=== PATIENT | female | born 1975 | race Native Hawaiian/Other Pacific Islander ===

== ENCOUNTER 2016-09-22 13:27 | Outpatient (CLI) | payer OTHER ==
[2016-09-22] MEDS ORDERED: LYRICA25 MG OR (14:11)
[2016-09-22] MEDS ORDERED: PHEN50CH2 PO (14:11)
[2016-09-22] MEDS ORDERED: SERT50TA PO (14:12)
== END 2016-09-22 13:38 | disposition short-term general hospital (02) ==
LOC: AMB 13:27
DX: R41.82 Altered mental status, unspecified (principal); F19.129 Other psychoactive substance abuse with intoxication, unspecified
CPT/HCPCS: A0425; A0429

== ENCOUNTER 2016-09-22 13:38 | Inpatient (IN) | payer OTHER ==
[~2016-09-22] VITALS: Ht 175.3 cm; Wt 63.5 kg
[2016-09-22 13:40] VITALS: BP 114/77; TEMP 98.8
[2016-09-22] MEDS ORDERED: PHEN50CH2 PO (14:11)
[2016-09-22] MEDS ORDERED: LYRICA25 MG OR (14:11)
[2016-09-22] MEDS ORDERED: SERT50TA PO (14:12)
[2016-09-22 14:34] LABS: POTASSIUM 3.3 mmol/L (3.6-5.2); SODIUM 139 mmol/L (136-145)
[2016-09-22 14:48] LABS: PLATELET COUNT 266 K/uL (152-353)
[2016-09-22 17:00] VITALS: BP 138/88
[2016-09-23] VITALS (13 sets, daily range): BP systolic 99–130; BP diastolic 45–70; TEMP 98–99.4; Ht 175.3 cm; Wt 63.5 kg
[2016-09-23 03:18] LABS: POTASSIUM 3.5 mmol/L (3.6-5.2); SODIUM 137 mmol/L (136-145)
[2016-09-23 03:31] LABS: PLATELET COUNT 207 K/uL (152-353)
[2016-09-23 03:47] LABS: PARTIAL THROMBOPLASTIN TIME 27.8 SECONDS (24.5-33.6)
[2016-09-24] VITALS (24 sets, daily range): BP systolic 92–124; BP diastolic 41–76; TEMP 98–98.7
[2016-09-24 08:04] LABS: PLATELET COUNT 179 K/uL (152-353)
[2016-09-24 08:30] LABS: POTASSIUM 3.2 mmol/L (3.6-5.2); SODIUM 138 mmol/L (136-145)
[2016-09-25] VITALS (11 sets, daily range): BP systolic 85–121; BP diastolic 46–69; TEMP 97.7–98.3
[2016-09-25 08:09] LABS: PLATELET COUNT 190 K/uL (152-353)
[2016-09-25 08:30] LABS: SODIUM 140 mmol/L (136-145)
[2016-09-26 03:38] VITALS: BP 116/56; TEMP 98.2
[2016-09-26 07:26] LABS: POTASSIUM 3.8 mmol/L (3.6-5.2); SODIUM 137 mmol/L (136-145)
[2016-09-26 07:51] LABS: PLATELET COUNT 173 K/uL (152-353)
[2016-09-26 08:00] VITALS: BP 110/68; TEMP 98.3
[2016-09-26 10:00] VITALS: BP 108/63
[2016-09-26 12:00] VITALS: BP 106/70; TEMP 98
== END 2016-09-26 15:18 | disposition home or self-care (01) | DRG 897 ==
LOC: ED 13:38 → ICU 09-23 10:15
PROVIDERS: Specialist; ADMIT Emergency Medicine
DX: F15.23 Other stimulant dependence with withdrawal (principal); B16.9 Acute hepatitis B without delta-agent and without hepatic coma; N39.0 Urinary tract infection, site not specified; S22.089A Unspecified fracture of T11-T12 vertebra, initial encounter for closed fracture; F14.10 Cocaine abuse, uncomplicated; B96.20 Unspecified Escherichia coli [E. coli] as the cause of diseases classified elsewhere; F31.9 Bipolar disorder, unspecified; F43.10 Post-traumatic stress disorder, unspecified; M79.7 Fibromyalgia; K81.9 Cholecystitis, unspecified; X58.XXXA Exposure to other specified factors, initial encounter; Y92.9 Unspecified place or not applicable; R94.5 Abnormal results of liver function studies; R73.9 Hyperglycemia, unspecified; R81 Glycosuria
CPT/HCPCS: 36415; 80053; 80074; 80307; 80320; 81000; 81025; 82140; 82150; 82962; 83036; 83605; 83690; 83735; 84100; 85007; 85027; 85610; 85730; 87077; 87086; 87088; 87186; 93005; 96365; 96367; 96372; 96375; 99285; G0479; J0690; J1650; J1885; J1956; J2060; J3486; J3490; Q9963

== ENCOUNTER 2017-07-30 19:15 | Outpatient (CLI) | payer OTHER ==
[~2017-07-30 19:15] MED LIST: LYRICA25 MG OR; PHEN50CH2 PO; SERT50TA PO
== END 2017-07-30 19:23 | disposition short-term general hospital (02) ==
LOC: AMB 19:15
DX: F19.10 Other psychoactive substance abuse, uncomplicated (principal)
CPT/HCPCS: A0425; A0429

== ENCOUNTER 2017-07-30 19:39 | Emergency (ER) | payer OTHER ==
[~2017-07-30] VITALS: Ht 165.1 cm; Wt 49.9 kg
[2017-07-30 20:39] LABS: PLATELET COUNT 312 K/uL (152-353)
[2017-07-30 20:46] LABS: SODIUM 136 mmol/L (136-145)
[2017-08-01 02:35] VITALS: BP 125/71; TEMP 98.8
== END 2017-08-01 02:34 | disposition other institution (70) ==
LOC: ED 19:39
PROVIDERS: Emergency Medicine
DX: F19.10 Other psychoactive substance abuse, uncomplicated (principal)
CPT/HCPCS: 36415; 80053; 80307; 80320; 80329; 81000; 81025; 84132; 85027; 93005; 99285

== ENCOUNTER 2018-02-22 21:04 | Emergency (ER) | payer OTHER ==
[~2018-02-22] VITALS: Ht 175.3 cm; Wt 68.5 kg
[2018-02-22 21:53] LABS: PLATELET COUNT 209 K/uL (152-353)
[2018-02-22 22:36] VITALS: BP 107/54; TEMP 98.4
== END 2018-02-22 22:37 | disposition home or self-care (01) ==
LOC: ED 21:04
PROVIDERS: Internal Medicine
DX: J40 Bronchitis, not specified as acute or chronic (principal); M79.10 Myalgia, unspecified site
CPT/HCPCS: 85027; 94664; 96372; 99283; 99284; J1885

== ENCOUNTER 2018-07-26 17:43 | Emergency (ER) | payer OTHER ==
[~2018-07-26] VITALS: Ht 175.3 cm; Wt 68.5 kg
[2018-07-26 19:26] LABS: POTASSIUM 3.4 mmol/L (3.6-5.2)
[2018-07-26 19:27] LABS: PLATELET COUNT 251 K/uL (152-353)
[2018-07-27 20:15] VITALS: BP 10110/6; TEMP 98.2
== END 2018-07-27 20:15 | disposition home or self-care (01) ==
LOC: ED 17:43
PROVIDERS: Family Medicine
DX: R06.02 Shortness of breath (principal); N39.0 Urinary tract infection, site not specified; E87.6 Hypokalemia; F41.9 Anxiety disorder, unspecified; R00.0 Tachycardia, unspecified
CPT/HCPCS: 80053; 80307; 80320; 80329; 81000; 85027; 87077; 87086; 87088; 87185; 87186; 93005; 99285; J1200; J1630; J2060

== ENCOUNTER 2018-07-28 19:21 | Outpatient (CLI) | payer OTHER | END 2018-07-28 19:24 | disposition short-term general hospital (02) | LOC: AMB 19:21 | DX: R41.82 Altered mental status, unspecified (principal) | CPT/HCPCS: A0425; A0427 ==

== ENCOUNTER 2018-07-28 19:31 | Emergency (ER) | payer OTHER ==
[~2018-07-28] VITALS: Ht 175.3 cm; Wt 68.5 kg
[2018-07-28 20:10] LABS: PLATELET COUNT 293 K/uL (152-353)
[2018-07-28 20:14] LABS: POTASSIUM 3.4 mmol/L (3.6-5.2)
[2018-07-28 20:58] VITALS: BP 123/86; TEMP 98.3
== END 2018-07-28 21:04 | disposition home or self-care (01) ==
LOC: ED 19:31
PROVIDERS: Family Medicine
DX: R06.02 Shortness of breath (principal); N39.0 Urinary tract infection, site not specified; E87.6 Hypokalemia; F41.9 Anxiety disorder, unspecified
CPT/HCPCS: 80053; 80307; 85027; 96361; 96365; 99284; J0696

== ENCOUNTER 2019-04-11 11:50 | Emergency (ER) | payer OTHER ==
[~2019-04-11] VITALS: Ht 175.3 cm; Wt 69.3 kg
[2019-04-11 11:59] VITALS: BP 124/63; TEMP 98.1
[2019-04-11 12:50] LABS: PLATELET COUNT 294 K/uL (152-353)
[2019-04-11 12:55] LABS: POTASSIUM 3.9 mmol/L (3.6-5.2)
[2019-04-11] MEDS ORDERED: OLANZAPINE10 M2 PO (14:18)
[2019-04-11] MEDS ORDERED: PHEN50CH2 PO (14:19)
== END 2019-04-11 16:10 | disposition home or self-care (01) ==
LOC: ED 11:50
PROVIDERS: Emergency Medicine
DX: R44.0 Auditory hallucinations (principal); F20.9 Schizophrenia, unspecified; N39.0 Urinary tract infection, site not specified; F15.10 Other stimulant abuse, uncomplicated; Z91.14 Patient's other noncompliance with medication regimen
CPT/HCPCS: 80053; 80307; 80320; 80329; 81000; 85027; 87088; 93005; 99285

== ENCOUNTER 2020-04-27 22:52 | Emergency (ER) | payer OTHER ==
[~2020-04-27] VITALS: Ht 175.3 cm; Wt 68.0 kg
[~2020-04-27 22:52] MED LIST changes: +OLANZAPINE10 M2 PO
[2020-04-28 00:50] VITALS: BP 142/84; TEMP 98.5
== END 2020-04-28 00:50 | disposition home or self-care (01) ==
LOC: ED 22:52
DX: S00.83XA Contusion of other part of head, initial encounter (principal); R51.9 Headache, unspecified; Y04.2XXA Assault by strike against or bumped into by another person, initial encounter; Y92.89 Other specified places as the place of occurrence of the external cause
CPT/HCPCS: 99282